=== PATIENT | female | born 1990 | race Caucasian/White ===

== ENCOUNTER 2022-07-06 14:58 | Outpatient (CLI) | payer BC | END 2022-07-06 14:59 | disposition home or self-care (01) | LOC: CSHCT 14:58 | PROVIDERS: ATTEND Orthopaedic Surgery | DX: S93.432D Sprain of tibiofibular ligament of left ankle, subsequent encounter (principal); S82.832K Other fracture of upper and lower end of left fibula, subsequent encounter for closed fracture with nonunion; Z98.890 Other specified postprocedural states; M25.472 Effusion, left ankle; M65.872 Other synovitis and tenosynovitis, left ankle and foot; Z87.828 Personal history of other (healed) physical injury and trauma ==